=== PATIENT | male | born 1980 | race African-American/Black ===

== ENCOUNTER 2016-12-27 22:24 | Emergency (ER) | payer BC ==
[~2016-12-27] VITALS: Ht 170.2 cm; Wt 118.8 kg
[2016-12-27 23:07] VITALS: BP 152/99
--- NOTE | 2016-12-28 01:05 | NUR ---
PATIENT TO ER BED 6.
--- NOTE | 2016-12-28 01:05 | NUR ---
36Y F c/o bleeding from hemorrhoid x 1 week. WITH RIGHT AND LEFT FLANK PAIN 03/03 med hx: htn
--- NOTE | 2016-12-28 01:18 | NUR ---
Patient being evaluated by physician at bedside.
[2016-12-28] MEDS ORDERED: KETOROLAC 60 MG/2 ML VIAL IM ONE (01:30)
[2016-12-28 02:38] VITALS: BP 141/87
--- NOTE | 2016-12-28 02:38 | NUR ---
Patient discharged with v/s stable. Written and verbal after care instructions given and explained. Patient alert, oriented and verbalized understanding of instructions. Ambulatory with steady gait. All questions addressed prior to discharge. ID band removed. Patient advised to follow up with PMD. Rx of MOTRIN 800MG AND HYDRCORTISONE 25MG RECTAL AND SENOKOT 8.6 TAB given. Patient educated on indication of medication including possible reaction and side effects. Opportunity to ask questions provided and answered.
== END 2016-12-28 02:38 | disposition home or self-care (01) ==
LOC: MED 22:24
DX: K64.4 Residual hemorrhoidal skin tags (principal); I10 Essential (primary) hypertension
CPT/HCPCS: 74000; 96372; 99283; J1885